=== PATIENT | female | born 2000 | race Caucasian/White ===

== ENCOUNTER 2020-09-07 10:11 | Emergency (ER) | payer MEDICAID ==
[~2020-09-07] VITALS: Ht 162.6 cm; Wt 77.1 kg
[2020-09-07 10:16] VITALS: BP 124/83
--- NOTE | 2020-09-07 10:18 | NUR ---
PT AMBULATED TO BED 08.
--- NOTE | 2020-09-07 10:24 | NUR ---
20 Y/O FEMALE C/O NAUSEA/VOMITING. SENT OVER BY DR. LAMAR OFFICE FOR EVALUATION AND IV HYDRATION. PT C/O N/V X1 WEEK. 10 WEEKS , G-1 P-0, DENIES VAGINAL BLEEDING, DENIES ABD PAIN. HX DENIES LMP: JUNE 09, 2020 [place]
[2020-09-07] MEDS ORDERED: METOCLOPRAMIDE 10 MG/2 ML INJ VIAL IVP ONE (10:25)
[2020-09-07] MEDS ORDERED: LACTATED RINGERS 1,000 ML IV ONE (10:25)
[2020-09-07] MEDS ORDERED: diphenhydrAMINE 50 MG/ML VIAL IVP ONE (10:25)
[2020-09-07] MEDS ORDERED: NACL 0.9% 1,000 ML IV ONE (10:25)
--- NOTE | 2020-09-07 10:26 | NUR ---
PT REFUSED BENADRYL MEDICATION. PT STATES THE MEDICATION GIVES HER HALLUCINATIONS. ERMD MADE AWARE. MED NON ADMIN.
--- NOTE | 2020-09-07 10:50 | NUR ---
LAB DRAWS COLLECTED AND HANDED TO LES LOPEZ
--- NOTE | 2020-09-07 10:52 | NUR ---
DR ROTH AT BEDSIDE PERFORMING ULTRASOUND
[2020-09-07 11:05] LABS: BASOPHILS % (AUTO) 0.1 % (0.0-2.0); EOSINOPHILS # (AUTO) 0.1 K/uL (0-0.4); EOSINOPHILS % (AUTO) 1.1 % (0.0-4.0); HEMATOCRIT 35.7 % (36-48); HEMOGLOBIN 12.4 g/dL (12.0-16.0); LYMPHOCYTES # (AUTO) 2.1 K/uL (2.5-16.5); LYMPHOCYTES % (AUTO) 19.8 % (20.5-51.1); MEAN CORPUSCULAR HEMOGLOBIN 32 pg (27-31); MEAN CORPUSCULAR HGB CONC 35 g/dL (33-37); MEAN CORPUSCULAR VOLUME 91.8 fL (80-94); MONOCYTES # (AUTO) 0.7 K/uL (0.8-1.0); MONOCYTES % (AUTO) 6.7 % (1.7-9.3); NEUTROPHILS # (AUTO) 7.9 K/uL (1.8-7.7); NEUTROPHILS % (AUTO) 72.3 % (42.2-75.2); PLATELET COUNT (AUTO) 232 K/uL (140-450); RED BLOOD CELL COUNT(AUTO) 3.89 MIL/uL (4.20-5.40); RED CELL DISTRIBUTION WIDTH 12.8 % (11.6-13.7); WHITE BLOOD COUNT (AUTO) 10.9 K/uL (4.5-11.0)
[2020-09-07 11:15] LABS: APPEARANCE,URINE CLEAR (CLEAR); BILIRUBIN,URINE NEGATIVE (NEGATIVE); BLOOD, URINE NEGATIVE (NEGATIVE); COLOR,URINE YELLOW (YELLOW); LEUKOCYTE ESTERASE ,URINE NEGATIVE (NEGATIVE); NITRITE, URINE NEGATIVE (NEGATIVE); UGLUCOSE NEGATIVE (NEGATIVE)
[2020-09-07 11:22] LABS: RBC,URINE 0-5 /HPF (0-5); WBC,URINE 0-5 /HPF (0-5)
[2020-09-07 11:24] LABS: ALBUMIN 3.5 g/dL (3.4-5.0); ANION GAP 13.7 (8-16); CARBON DIOXIDE 22.8 mmol/L (21-32); CREATININE 0.4 mg/dL (0.6-1.3); POTASSIUM 3.5 mmol/L (3.5-5.1); TOTAL BILIRUBIN 0.4 mg/dL (0.0-1.0)
--- NOTE | 2020-09-07 11:37 | NUR ---
PER DR ROSEN ORDERS FOR PO TOLERANCE TRIAL. OJ GIVEN. WILL CONTINUE TO MONITOR.
--- NOTE | 2020-09-07 11:45 | NUR ---
PT TOLERATED PO OJ. ERMD MADE AWARE
[2020-09-07 11:55] VITALS: BP 109/67
--- NOTE | 2020-09-07 11:55 | NUR ---
Patient discharged with v/s stable. Written and verbal after care instructions given and explained. Patient verbalized understanding. Ambulatory with steady gait. All questions addressed prior to discharge. Advised to follow up with PMD.
== END 2020-09-07 11:55 | disposition home or self-care (01) ==
LOC: MED 10:11
DX: O21.9 Vomiting of pregnancy, unspecified (principal); Z3A.10 10 weeks gestation of pregnancy
CPT/HCPCS: 36415; 80053; 81001; 81025; 83690; 85025; 96361; 96374; 99284; J2765; J7030; J7120; J1200

== ENCOUNTER 2020-10-09 18:56 | Emergency (ER) | payer MEDICAID ==
[~2020-10-09] VITALS: Ht 162.6 cm; Wt 74.4 kg
[2020-10-09 19:00] VITALS: BP 130/72
[2020-10-09 19:31] LABS: BASOPHILS % (AUTO) 0.1 % (0.0-2.0); EOSINOPHILS # (AUTO) 0.1 K/uL (0-0.4); EOSINOPHILS % (AUTO) 0.9 % (0.0-4.0); HEMATOCRIT 33.2 % (36-48); HEMOGLOBIN 11.3 g/dL (12.0-16.0); LYMPHOCYTES # (AUTO) 2.4 K/uL (2.5-16.5); LYMPHOCYTES % (AUTO) 19.6 % (20.5-51.1); MEAN CORPUSCULAR HEMOGLOBIN 31 pg (27-31); MEAN CORPUSCULAR HGB CONC 34 g/dL (33-37); MEAN CORPUSCULAR VOLUME 91.6 fL (80-94); MONOCYTES # (AUTO) 0.6 K/uL (0.8-1.0); MONOCYTES % (AUTO) 5.1 % (1.7-9.3); NEUTROPHILS % (AUTO) 74.3 % (42.2-75.2); PLATELET COUNT (AUTO) 221 K/uL (140-450); RED BLOOD CELL COUNT(AUTO) 3.63 MIL/uL (4.20-5.40); WHITE BLOOD COUNT (AUTO) 12.1 K/uL (4.5-11.0)
[2020-10-09 19:47] LABS: ALBUMIN 3.5 g/dL (3.4-5.0); ANION GAP 12.6 (8-16); CARBON DIOXIDE 25.1 mmol/L (21-32); CREATININE 0.7 mg/dL (0.6-1.3); POTASSIUM 3.7 mmol/L (3.5-5.1); TOTAL BILIRUBIN 0.2 mg/dL (0.0-1.0)
[2020-10-09 21:38] LABS: APPEARANCE,URINE CLEAR (CLEAR); BILIRUBIN,URINE NEGATIVE (NEGATIVE); BLOOD, URINE NEGATIVE (NEGATIVE); COLOR,URINE YELLOW (YELLOW); LEUKOCYTE ESTERASE ,URINE NEGATIVE (NEGATIVE); NITRITE, URINE NEGATIVE (NEGATIVE); PH,URINE 6.5 (5.0-9.0); UGLUCOSE NEGATIVE (NEGATIVE)
[2020-10-09 21:57] VITALS: BP 130/72
== END 2020-10-09 21:57 | disposition left against medical advice (07) ==
LOC: MED 18:56
DX: O21.9 Vomiting of pregnancy, unspecified (principal); Z53.21 Procedure and treatment not carried out due to patient leaving prior to being seen by health care provider
CPT/HCPCS: 36415; 80053; 81003; 81025; 84702; 85025; 99281

== ENCOUNTER 2023-09-26 16:02 | Emergency (ER) | payer MEDICAID ==
[~2023-09-26] VITALS: Ht 162.6 cm; Wt 72.6 kg
[2023-09-26 16:22] VITALS: BP 121/82; PULSE 85; RESP 18; TEMP 97.8; O2SAT 98
[2023-09-26] MEDS ORDERED: cefTRIAXone 500 MG VIAL ONE (18:02)
[2023-09-26] MEDS ORDERED: LIDOCAINE MPF 1% 5 ML ONE (18:02)
[2023-09-26] MEDS: cefTRIAXone 500 MG in LIDOCAINE MPF 1% 1 ML IM ONE (18:04)
[2023-09-26] MEDS ORDERED: DOXY-22 PO (18:16)
[2023-09-26] MEDS ORDERED: METR-435 PO (18:16)
[2023-09-26] MEDS ORDERED: FLUC150T78 PO (18:16)
[2023-09-26 18:32] VITALS: BP 137/60; PULSE 69; RESP 17; TEMP 97; O2SAT 97
== END 2023-09-26 18:34 | disposition home or self-care (01) ==
LOC: MED 16:02
DX: R10.2 Pelvic and perineal pain (principal); Z79.899 Other long term (current) drug therapy
CPT/HCPCS: 81002; 81025; 87210; 87491; 96372; 99284; J0696; J2001; 99283